=== PATIENT | male | born 1985 | race Two or more races ===

== ENCOUNTER 2017-04-19 13:11 | Emergency (ER) | payer SELFPAY ==
[~2017-04-19] VITALS: Ht 175.3 cm; Wt 65.0 kg
[2017-04-19 13:17] VITALS: BP 100/65
== END 2017-04-19 16:33 | disposition home or self-care (01) ==
LOC: ED 16:17
DX: R21 Rash and other nonspecific skin eruption (principal)
CPT/HCPCS: 99283; J7512

== ENCOUNTER 2017-05-02 18:19 | Emergency (ER) | payer SELFPAY ==
[~2017-05-02] VITALS: Ht 175.3 cm; Wt 66.0 kg
[2017-05-02 18:35] VITALS: BP 96/58
== END 2017-05-02 19:30 | disposition home or self-care (01) ==
LOC: ED 19:24
DX: L20.84 Intrinsic (allergic) eczema (principal)
CPT/HCPCS: 99283